=== PATIENT | female | born 1970 | race Caucasian/White ===

== ENCOUNTER → 2018-01-04 10:13 | Outpatient (CLI) | payer OTHER, SELFPAY ==
--- NOTE | 2018-01-04 10:20 | MRI_ITS ---
STUDY: MRI LUMBAR SPINE WITHOUT CONTRAST REASON FOR EXAM: Female, 47 years old. Back pain, numbness and tingling in legs and left arm. TECHNIQUE: Standardized fat and water weighted pulse sequences were obtained in the sagittal and axial planes. COMPARISON: None FINDINGS: T11-T12: (Sagittal only). Minimal anterior wedging of the T11 superior endplate. Schmorl's node in the central aspect of the T11 inferior endplate. Normal T12 superior endplate. Mild disc height narrowing with normal disc hydration. No ventral extradural defect. Normal central canal and bilateral intervertebral neural foramina. T12-L1: (Sagittal only). Schmorl's nodes in the vertebral endplates. Minimal disc space height narrowing. Normal disc hydration and morphology. Normal central canal and bilateral intervertebral neural foramina. Normal lumbar lordosis. There is no substantial scoliosis. Normal conus medullaris that terminates at the L1-L2 disc level. L1-2: Normal endplates. Normal disc height, hydration and morphology. Normal bilateral facet joints. Normal central canal and bilateral lateral recesses. Normal bilateral intervertebral neural foramina. Left renal cyst is visible at this level. L2-3: Normal endplates. Normal disc height, hydration and morphology. Normal bilateral facet joints. Normal central canal and bilateral lateral recesses. Normal bilateral intervertebral neural foramina. L3-4: Normal endplates. Small posterior bulging disc. Normal central canal and bilateral lateral recesses. Normal facet joints. Normal bilateral intervertebral neural foramina. L4-5: Normal endplates. Normal disc height and morphology. Signal distortion artifacts in the anterior aspect of the vertebral bodies and disc are due to the pain pump device. Small posterior bulging disc. Normal central canal and bilateral lateral recesses. Mild left degenerative facet arthropathy. Normal right facet joint. Normal bilateral intervertebral neural foramina. L5-S1: Normal endplates. Minimal disc space height narrowing. Small posterior midline disc protrusion contains annular fissure. No ventral extradural defect due to presence of ventral epidural fat. Normal central canal and bilateral lateral recesses. Normal facet joints. Normal bilateral intervertebral neural foramina. Normal visualized sacral ala. Normal visualized paraspinous soft tissue structures. MRI/Spine Lumbar (Routine) IMPRESSION: 1. No MRI evidence of lumbar extruded disc fragment or spinal stenosis. 2. Small L5-S1 posterior midline disc protrusion constraints small posterior annular fissure. 3. Small posterior bulging discs at L3-L4 and L4-L5 disc space levels. 4. Left renal cyst. Electronically Signed: Jamaal Leone MD at 12:05 EDT , Service support ,
== END ==
LOC: MRI 10:15
PROVIDERS: Visit Provider Anesthesiology Pain Medicine
DX: M51.27 Other intervertebral disc displacement, lumbosacral region (principal); M51.37 Other intervertebral disc degeneration, lumbosacral region; M51.06 Intervertebral disc disorders with myelopathy, lumbar region
CPT/HCPCS: 72148

== ENCOUNTER → 2018-07-06 13:23 | Outpatient (CLI) | payer OTHER, SELFPAY ==
--- NOTE | 2018-07-06 14:20 | MRI_ITS ---
STUDY: MRI BRAIN WITH AND WITHOUT CONTRAST REASON FOR EXAM: Female, 47 years old. Pituitary disorder. Abnormal cortisol levels. TECHNIQUE: Standardized multiplanar fat and water weighted pulse sequences were obtained. 14 ml of Dotarem contrast material was administered intravenously for the contrast portion of the examination. COMPARISON: None. FINDINGS: Several sequences are degraded by patient motion. Normal size of the ventricles and extra-axial spaces for the patient's age. Normal white matter tracts of the supratentorial brain. Normal bilateral basal ganglia. Normal thalami. There is no extra-axial fluid accumulation. Normal flow voids within the major intracranial circulation suggesting patency by spin echo criteria. Normal venous enhancement. There is no enhancing intra-axial or extra-axial abnormality. Normal sella turcica, pituitary gland, infundibular stalk, optic chiasm and hypothalamus. Normal tectal plate and pineal gland. Specifically, the pituitary gland is not enlarged. Normal midbrain, estefania and medulla. Normal cerebellum. Normal basal cisterns. Normal bilateral temporal bones. Normal bilateral internal auditory canals. No demonstrated orbital abnormality, within the constraints of a routine brain study. Normal visualized paranasal sinuses. Normal calvarium and skull base. Normal visualized soft tissue structures. Normal visualized upper cervical spine. MRI/Brain W/WO Contrast IMPRESSION: Normal unenhanced and enhanced MRI of the brain. Electronically Signed: Arminda Pickard MD at 16:51 EDT Tel , Service support ,
--- NOTE | 2018-07-06 16:00 | NURSING ---
UNABLE TO ACCESS PORT WITH 3/4 INCH KIT D/T EDEMA FROM RECENT PLACEMENT. ACCESSED WITH 1 KIT. PT TOLERATED WELL.
== END ==
DX: E23.7 Disorder of pituitary gland, unspecified (principal)
CPT/HCPCS: 70553; A4216

== ENCOUNTER → 2020-04-01 13:20 | Outpatient (CLI) | payer OTHER, MEDICARE, SELFPAY ==
[2020-04-01 13:16] VITALS: BMI 29.8
--- NOTE | 2020-04-01 13:24 | RAD_ITS ---
STUDY: X-RAY - LUMBAR SPINE REASON FOR EXAM: Female, 49 years old. CHRONIC BACK AND NECK PAIN TECHNIQUE: 4 view(s) of the lumbar spine were obtained. COMPARISON: 2016 FINDINGS: Normal lumbar lordosis. There is a rotatory scoliosis with levoscoliosis of the thoracolumbar junction and compensatory dextroscoliosis in the lower lumbar spine. There is a normal alignment of the vertebrae in the lateral view. Normal vertebral bodies and endplates. Mild disc space narrowing There is no demonstrated fracture. No instability noted on the flexion or extension views. The soft tissue structures are unremarkable. RAD/L/S Spine Min 4 Views IMPRESSION: Degenerative changes of the spine, as detailed above. Electronically Signed: Gerber Castro MD at 13:40 EDT , Service support ,
--- NOTE | 2020-04-01 13:24 | RAD_ITS ---
STUDY: X-RAY - CERVICAL SPINE REASON FOR EXAM: Female, 49 years old. CHRONIC BACK AND NECK PAIN TECHNIQUE: 4 view(s) of the cervical spine were obtained. COMPARISON: None FINDINGS: Normal anterior atlantoaxial articulation. Normal odontoid process. There is straightening of the normal cervical lordosis. There is multi-level endplate spondylosis. Mild disc space narrowing throughout the cervical spine. No evidence of instability on the flexion or extension views. The soft tissue structures are unremarkable. RAD/Cerv Spine 4 or 5 Views IMPRESSION: Mild degenerative changes, no acute findings or instability Electronically Signed: Gerber Castro MD at 13:39 EDT , Service support ,
== END ==
PROVIDERS: Referring Provider Orthopaedic Surgery; Visit Provider Orthopaedic Surgery
DX: M54.2 Cervicalgia (principal); M54.9 Dorsalgia, unspecified
CPT/HCPCS: 72050; 72110

== ENCOUNTER → 2020-06-24 12:02 | Outpatient (CLI) | payer OTHER, MEDICARE, SELFPAY ==
[2020-04-01 13:16] VITALS: BMI 29.8
[2020-06-24] VITALS (10 sets, daily range): BP systolic 84–115; BP diastolic 47–84; PULSE 61–75; RESP 10–18; O2SAT 93–100; BMI 27.1
--- NOTE | 2020-06-24 12:20 | RAD_ITS ---
PROCEDURE: CERVICAL MYELOGRAM DATE OF EXAMINATION: 06/24/2020 INDICATION: Female, 49 years old. Bilateral upper extremity pain. PHYSICIAN: Abelardo Lloyd M.D. CONSENT: The patient''s history and physical findings were reviewed. The cervical myelogram procedure was discussed with the patient prior to signing a consent. SEDATION: Local anesthesia with 3 mL of 1% lidocaine was used. FLUOROSCOPY TIME (if supplied): (0:50) minutes/seconds Injection Information: 15 cc of and 300 Number of images obtained: 3 TECHNIQUE: Digital fluoroscopy was used to identify a safe approach for the cervical myelogram. The back was prepped and draped in usual fashion. Local anesthesia was utilized. Under fluoroscopic guidance a 22-gauge spinal needle was inserted into the spinal canal at the L3-L4 level. The opening pressure Clear spinal fluid was seen.15 mL of Isovue 300 M was injected into the spinal canal. The patient was placed in the [place] position. Contrast was seen at the level of the cervical spine. There is good opacification of the spinal fluid. The nerve root sheaths are asymmetrically identified. There is no extradural defects. RAD/Cervical Myelogram IMPRESSION: Normal cervical myelogram. CT scan will follow. The patient tolerated the procedure well. Electronically Signed: Abelardo Lloyd, at 14:16 EDT , Service support ,
--- NOTE | 2020-06-24 12:20 | RAD_ITS ---
PROCEDURE: LUMBAR MYELOGRAM DATE OF EXAMINATION: 06/24/2020. INDICATION: Female, 49 years old. Low back pain. PHYSICIAN: Abelardo Lloyd M.D. CONSENT: The patient''s history and physical findings were reviewed. The lumbar myelogram procedure was discussed with the patient prior to signing a consent. SEDATION: Local anesthesia with 3 mL of 1% lidocaine was used. FLUOROSCOPY TIME (if supplied): (0:50) minutes/seconds Injection Information: 15 cc of ISOVUE-M 300 Number of images obtained: 1 TECHNIQUE: Digital fluoroscopy was used to identify a safe approach for the lumbar myelogram. The back was prepped and draped in usual fashion. Local anesthesia was utilized. Under fluoroscopic guidance a 22-gauge spinal needle was inserted into the spinal canal at the L3-L4 level. Clear spinal fluid was seen .15 mL of Isovue 300 M was injected into the spinal canal. There is good opacification of the spinal fluid. The nerve root sheaths are asymmetrically identified. There is no extradural defects. RAD/Lumbar Myelogram IMPRESSION: Normal lumbar myelogram. CT scan will follow. The patient tolerated the procedure well. Electronically Signed: Abelardo Lloyd, at 14:12 EDT , Service support ,
[2020-06-24] MEDS: Midazolam 2 MG/2 ML Syringe IV ×2 (13:07→13:16)
[2020-06-24] MEDS: fentaNYL 100 MCG/2 ML Ampul IV ×2 (13:09→13:16)
--- NOTE | 2020-06-24 13:40 | CT_ITS ---
STUDY: CT CERVICAL SPINE WITH INTRATHECAL CONTRAST (CERVICAL CT MYELOGRAM) REASON FOR EXAM: Female, 49 years old. Post myelogram. C spine pain. Hx of seizures and weakness RADIATION DOSAGE (If Supplied By Facility): CTDIvol = ( 19.01 ) mGy, DLP = ( 392.94 ) mGycm TECHNIQUE: Transaxial images were obtained following intrathecal administration of 15 ml of ISOVUE-M 300 contrast material, performed by Dr. Gabino SOOD. Please refer to this physicians technical notes for procedural details. Coronal and sagittal reconstructions were obtained. Individualized dose optimization techniques were used for this CT. COMPARISON: None. FINDINGS: Normal craniovertebral junction. Normal anterior atlantoaxial articulation. Normal odontoid process. There is straightening of the normal cervical lordosis. Normal vertebral bodies and posterior osseous elements. C2-3: Normal endplates. Normal disc height and morphology. Normal central canal and bilateral intervertebral neural foramen. C3-C4: Hypertrophy of the facet joint on the right side. Posterior spondylosis and uncovertebral arthrosis on the right side causing mild degree of the stenosis of the right lateral recess and possible compression of the exiting nerve root. C4-C5: Facet joint osteoarthritis and hypertrophy on the right side. Mild degree of right neural foraminal stenosis. C5-C6: Moderate degree of disc space narrowing. Facet joint osteoarthritis and hypertrophy more prominent on the right side. No significant stenosis is seen. C6-7: Normal endplates. Normal disc height and morphology. Normal central canal and bilateral intervertebral neural foramen. C7-T1: Normal endplates. Normal disc height and morphology. Normal bilateral uncovertebral and apophyseal joints. Normal central canal and bilateral intervertebral neural foramen. Normal cervical cord size and morphology. Bullous changes seen in the right lung apex. CT/Spine Cervical WITH Contrast IMPRESSION: Facet joint osteoarthritis and posterior uncovertebral arthrosis at the C3-C4, C4-C5 and C5-C6 levels. Electronically Signed: Abelardo Lloyd, at 14:25 EDT , Service support ,
--- NOTE | 2020-06-24 13:40 | CT_ITS ---
STUDY: CT LUMBAR SPINE WITH INTRATHECAL CONTRAST (LUMBAR CT MYELOGRAM) REASON FOR EXAM: Female, 49 years old. POST MYELOGRAM LOW BACK PAIN. HX OF BACK SURGERY. RADIATION DOSAGE (If Supplied By Facility): CTDIvol = ( 19.01 ) mGy, DLP = ( 392.94 ) mGycm TECHNIQUE: Transaxial images were obtained from the T12 vertebra through the S1 level, following intrathecal administration of 15 ml of M300 contrast material, performed by Dr. Gabino SOOD. Please refer to this physicians technical notes for procedural details. Coronal and sagittal reconstructions were obtained. Individualized dose optimization techniques were used for this CT. COMPARISON: None. FINDINGS: Normal lumbar lordosis. There is no substantial scoliosis. Normal vertebrae of the lumbar spine. There is dependent layering of contrast material in the distal thecal sac. The conus medullaris terminates in a normal position at the L1-L2 level. There is no demonstrated cauda equina nerve root abnormality or intraspinal mass. L1-2: Normal endplates. Normal disc height and morphology. Normal bilateral facet joints. Normal central canal and bilateral lateral recesses. Normal bilateral intervertebral neural foramina. L2-3: Normal endplates. Minimal central disc bulge at the L2-L3 level. Normal bilateral facet joints. Normal central canal and bilateral lateral recesses. Normal bilateral intervertebral neural foramina. L3-4: Normal endplates. Normal disc height and morphology. Normal bilateral facet joints. Normal central canal and bilateral lateral recesses. Normal bilateral intervertebral neural foramina. L4-5: Normal endplates. Normal disc height and morphology. Normal bilateral facet joints. Normal central canal and bilateral lateral recesses. Normal bilateral intervertebral neural foramina. L5-S1: Normal endplates. Normal disc height and morphology. Normal bilateral facet joints. Normal central canal and bilateral lateral recesses. Normal bilateral intervertebral neural foramina. Normal visualized sacroiliac joints. Normal visualized paraspinous soft tissue structures. CT/Spine Lumbar WITH Contrast IMPRESSION: Minimal central disc bulge at the L2-L3 level. Electronically Signed: Abelardo Lloyd, at 14:27 EDT , Service support ,
--- NOTE | 2020-06-24 14:16 | NURSING ---
Upon initial pt presentation at approximately 1220 pt asks Now why is it I need someone to take me home after this scan? I've never had that before ZOHAIB Adrian states well since we're going into the spinal canal it's our policy to always have someone to take you home Pt states What do you mean? I thought I was just having a Cat Scan ZOHAIB Adrian states You will have a cat scan, but before we do this particular cat scan, our radiologist injects your spinal canal with contrast so we can get images of it Pt states Well I can't have local anesthetic, it doesn't work on me, my mother had rubella when she was with me and I have all sorts of nerve problems because of it and that's one of the side effects is that local doesn't work on me. Everyone has to put me out to do anything on me. [employer] tech offers to get Dr. Lloyd so options can be discussed. Dr. Lloyd talks with patient who states Dr. Beatty does spinal injections every 3 months and he puts me out so I don't feel anything and then I'm good to go, I don't have to be monitored or anything. I wish I knew the name of that medicine because that's what he does every time Dr. Lloyd decides pt should undergo myelogram with procedural sedation. Pt is agreeable to plan.
[2020-06-24] MEDS: 0.9% Saline Lock 10 ML Syringe IV (14:23)
== END ==
PROVIDERS: Referring Provider Orthopaedic Surgery; Visit Provider Orthopaedic Surgery
DX: M47.812 Spondylosis without myelopathy or radiculopathy, cervical region (principal); M51.26 Other intervertebral disc displacement, lumbar region
CPT/HCPCS: 62305; 62302; 62304; 72126; 72132; 99155; 99156; J7040; Q9965; A4216

== ENCOUNTER 2024-05-25 08:36 | Day surgery (SDC) | payer MEDICARE, SELFPAY ==
--- NOTE | 2024-05-25 08:48 | PRE.ANES_ITS ---
ASA Classification* ASA Classification ASA Classification: 2 Assessment & Plan Anesthesia* Anesthesia Assessment Anesthesia Assessment: Discussed sedation and/or anesthesia options, risks, benefits, and alternatives with patient/parents/legal guardian/POA. Questions invited. The patient/parents/legal guardian/POA seems to understand and agrees to proceed with anesthesia plan. Reviewed the physical assessment, medical history, allergy history and patient home medications list prior to surgery/procedure/anesthetic and documented any changes. Performed airway and anesthesia risk assessments. Anesthesia Type Anesthesia Type: General Anesthesia Focused Assessment* Airway Assessment Mouth opens: >3 cm Mallampati Score: II Focused Labs Anesthesia Preop lab: CBC WBC 7.9 K/mm3 (4.4-11.0) 11/10/16 07:05 RBC 3.60 M/mm3 (4.2-5.4) L 11/10/16 07:05 Hgb 11.2 g/dl (12.0-15.0) L 11/10/16 07:05 Hct 33.7 % (37-47) L 11/10/16 07:05 Plt Count 243 K/mm3 (150-450) 11/10/16 07:05 CHEMISTRY Potassium 4.1 mmol/L (3.5-5.1) 11/10/16 07:05 Sodium 138 mmol/L (136-145) 11/10/16 07:05 BUN 10 mg/dL (7-18) 11/10/16 07:05 Creatinine 0.68 mg/dL (0.55-1.02) 11/10/16 07:05 Glucose 81 mg/dL (70-110) 11/10/16 07:05 COAG Pre-Assessment Diagnosis/Proposed Procedure Planned Operative Procedure(s): Insertion, Pain Pump,Implantable Anesthesia History 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 When Was Last Pacemaker Check QUESTION #4 FULL TEXT: You/Your Family Experience fever (hyperthermia) with Anesthesia Last Oral Intake Last Oral intake: Last Oral Intake NPO since Meds taken in AM with sips of water? 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 Female Yes 05/17/24 14:10 HX of Motion Sickness Yes 05/17/24 14:10 HX of N/V After Surgery Yes 05/17/24 14:10 Non-Smoker Yes 05/17/24 14:10 Duration of Surgery greater No 05/17/24 14:10 than 60 minutes Number of Risk Factors 4 05/17/24 14:10 PONV Score Severe Risk 05/17/24 14:10 Respiratory Assessment Respiratory Assessment - word processing machine operator: Respiratory Tract Infection Hx - word processing machine operator Hx Respiratory Tract Infection No 05/17/24 14:10 STOP Sleep Apnea STOP Sleep Apnea - word processing machine operator: STOP Sleep Apnea - word processing machine operator Hx Hypertension Yes: CONTROLLED WITH MED 05/17/24 14:10 Hx Sleep Apnea Yes 05/17/24 14:10 CPAP No 05/17/24 14:10 BIPAP No 05/17/24 14:10 Do you snore loudly (louder than talking or can be heard Do you often feel tired/ fatigued/ sleepy during daytime? Has anyone observed you stop breathing during sleep? STOP Results Positive 05/17/24 14:10 QUESTION #5 FULL TEXT : Do you snore loudly (louder than talking or can be heard through closed doors)? 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 Specify any problems Hx of Preganancy in last 3 N/A 05/17/24 14:10 Months Nurse Filling Out Transfusion NBUCHER 05/17/24 14:10 & Questions: Date: 05/17/24 05/17/24 14:10 Time: 14:12 05/17/24 14:10 Patient unable to answer at this time (ie. confused, unrespo /Reproduction History /Reproductive History - word processing machine operator: /Reproductive Hx- word processing machine operator Hx Now Gestational Age (in weeks): EDC: Hx Hx Para Hx Section SAB Active Medications Active Medications: Current Medications Generic Name Dose Route Start Last Admin Trade Name Freq PRN Reason Stop Dose Admin Lactated Ringer's 1,000 mls @ 15 mls/hr 05/25/24 08:45 IV .Q48H KRISTOPHER PFSH Medical History Wears hearing aid Loss of hearing Claustrophobia Anxiety Thyroid disease Walker as ambulation aid Arthritis Kidney stones Anemia High cholesterol Migraine headache Wears dentures Wears glasses No natural teeth Colostomy in place Ileostomy in place Gastric reflux Shortness of breath on exertion Sleep apnea On home oxygen therapy Emphysema, unspecified Asthma COPD (chronic obstructive pulmonary disease) Former smoker History of edema Leg cramps History of echocardiogram History of stress test Cardiology follow-up encounter Chest pain History of irregular heartbeat RSD (reflex sympathetic dystrophy) Paralysis of right upper extremity Cardiac dysrhythmia Addisons disease Home Medications ?Medication ?Instructions ?Recorded ?Last Taken ?Type albuterol sulfate 90 mcg/actuation 2 puff inhalation 4X/DAY 11/09/16 03/18/17 07:00 History aerosol inhaler amitriptyline 25 mg tablet 25 mg PO QHS PRN Not Specified 11/09/16 Unknown History epinephrine 0.3 mg/0.3 mL 0.3 mg IM X1 PRN anaphylaxis 11/09/16 Unknown History injection, auto-injector fluticasone propionate 110 2 puff inhalation BID PRN Sob &/Or 11/09/16 Unknown History mcg/actuation HFA aerosol inhaler Wheezing fluticasone propionate 50 1 spray NASAL DAILY PRN Allergies 11/09/16 Unknown History mcg/actuation nasal spray,suspension diltiazem HCl 120 mg 120 mg PO DAILY 03/17/17 03/18/17 07:00 History capsule,extended release 24 hr multivitamin with minerals 1 ea PO DAILY 03/17/17 Unknown History potassium 99 mg tablet 99 mg PO DAILY PRN LEG CRAMPS 03/17/17 Unknown History pregabalin 75 mg capsule 75 mg PO 4X/DAY 03/17/17 Unknown History abaloparatide (Tymlos) 80 mcg subcut DAILY 04/01/20 Unknown History atorvastatin 20 mg tablet (Lipitor) 20 mg PO DAILY 04/01/20 Unknown History cholecalciferol (vitamin D3) 125 125 mcg PO DAILY 04/01/20 Unknown History mcg (5,000 unit) capsule furosemide 20 mg tablet (Lasix) 20 mg PO DAILY 04/01/20 Unknown History hydrocortisone 5 mg tablet (Cortef) 5 mg PO TID 04/01/20 Unknown History promethazine 25 mg tablet 25 mg PO TID PRN nausea and 04/01/20 Unknown History vomiting sumatriptan succinate 50 mg tablet 50 mg PO ONCE PRN migraine headache 04/01/20 Unknown History (Imitrex) zolpidem 5 mg tablet (Ambien) 5 mg PO QHS PRN insomnia 04/01/20 Unknown History digoxin 125 mcg (0.125 mg) tablet 125 mcg PO MOWEFR 05/17/24 Unknown History Allergy/AdvReac Type Severity Reaction Status Date / Time acetaminophen (From Allergy Unknown Verified 05/17/24 14:04 Darvocet-N) adhesive tape Allergy Hives Verified 05/17/24 14:04 jasso Allergy Anaphylaxis Verified 05/17/24 14:04 codeine Allergy itching, Verified 05/17/24 14:04 breathing difficulty cucumber Allergy Anaphylaxis Verified 05/17/24 14:04 Food Allergies: Uncoded Allergy Anaphylaxis Verified 05/17/24 14:04 Influenza Virus Vaccines Allergy Anaphylaxis Verified 05/17/24 14:04 iodine Allergy blisters, Verified 05/17/24 14:04 sores, rash, sinclair ketorolac (From Toradol) Allergy Itching Verified 05/17/24 14:04 latex Allergy Hives Verified 05/17/24 14:04 oxycodone (From Percocet) Allergy Unknown Verified 05/17/24 14:04 prochlorperazine (From Allergy Anaphylaxis Verified 05/17/24 14:04 Compazine) propoxyphene (From Allergy Unknown Verified 05/17/24 14:04 Darvocet-N) rubber, unspecified Allergy Hives Verified 05/17/24 14:04 sertraline (From Zoloft) Allergy Anaphylaxis Verified 05/17/24 14:04 shellfish derived Allergy Hives Verified 05/17/24 14:04 Surgical History History of esophagogastroduodenoscopy (EGD) History of colonoscopy History of surgery on arm History of cholecystectomy History of appendectomy History of laparoscopy History of tonsillectomy and adenoidectomy History of hysterectomy History of foot surgery History of bowel resection History of cardiac catheterization Social History Smoking Status: Former smoker Review of Systems (Anesthesia) ROS Narrative System reviewed and no additional complaints, except as documented.
[2024-05-25 09:00] VITALS: BP 111/62; PULSE 67; RESP 16; TEMP 36.6; O2SAT 99; BMI 34.3
[2024-05-25] MEDS: Lactated Ringers 1,000 ML 15 ML IV (09:04)
[2024-05-25] MEDS: Lidocaine 1% /Epi 1:100 (20ml) 20 ML Vial (10:38)
[2024-05-25] MEDS: Bupiv/Epi 0.25% 30 ML Vial (11:15)
[2024-05-25 11:40] VITALS: BP 111/62; BP 89/58; PULSE 82; RESP 16; RESP 18; TEMP 36.1; O2SAT 93; O2SAT 94
--- NOTE | 2024-05-25 11:40 | PCM.POST.ANE ---
Anesthesia: Postop Eval I Current Vital Signs Temperature: 96.9 F Pulse Rate: 82 Blood Pressure: 89/58 Respiratory Rate: 18 Pulse Ox: 94 Assessment Airway patent: Yes Spontaneous unlabored respirations: Yes nausea: No Vomiting: No Anesthesia Complication: No Fluid Hydration Crystalloid volume administer (ml): 500 Total IV fluid infused: 500 Progress Note Anesthesia document: Postop Eval 1 completed: Yes
[2024-05-25 11:45] VITALS: BP 111/62; BP 89/58; PULSE 83; RESP 16; O2SAT 94
[2024-05-25 11:50] VITALS: BP 104/57; BP 111/62; PULSE 81; RESP 17; O2SAT 94
[2024-05-25 11:57] VITALS: BP 111/62; BP 94/51; PULSE 83; RESP 16; TEMP 36.1; O2SAT 94
[2024-05-25 12:33] VITALS: BP 111/62
--- NOTE | 2024-05-25 12:37 | SUR.PHASEII ---
10ml normal saline flush, 5 ml heparin flush upon deaccessing
== END 2024-05-25 12:39 | disposition home or self-care (01) ==
LOC: SDC 08:41 → AC 08:42
PROVIDERS: Referring Provider Anesthesiology Pain Medicine; Visit Provider Anesthesiology Pain Medicine
PROC: (CPT 62362; principal; 2024-05-25 10:15)
DX: G89.4 Chronic pain syndrome (principal); J43.9 Emphysema, unspecified; I10 Essential (primary) hypertension; E78.00 Pure hypercholesterolemia, unspecified; Z79.51 Long term (current) use of inhaled steroids; Z79.899 Other long term (current) drug therapy; Z87.891 Personal history of nicotine dependence
CPT/HCPCS: 62362; J7120; A4216; J2405